=== PATIENT | male | born 1940 | race Hispanic/Latino ===

== ENCOUNTER 2017-07-24 11:41 | Inpatient (IN) | payer MEDICARE ==
[~2017-07-24] VITALS: Ht 165.1 cm; Wt 90.6 kg
[2017-07-24 12:41] LABS: BASOPHILS % (AUTO) 0.8 % (0.0-5.0); EOSINOPHILS % (AUTO) 2.7 % (0.0-8.0); HEMATOCRIT 43.6 % (42-54); LYMPHOCYTES % (AUTO) 17.6 % (21.0-51.0); MEAN CORPUSCULAR HEMOGLOBIN 31.3 pg (27.0-33.0); MEAN CORPUSCULAR HGB CONC 34.4 g/dL (32.0-36.0); MONOCYTES % (AUTO) 10.1 % (3.0-13.0); NEUTROPHILS % (AUTO) 68.8 % (40.0-77.0); PLATELET COUNT (AUTO) 214 K/uL (130-400); RED BLOOD CELL COUNT(AUTO) 4.79 MIL/uL (4.50-6.20); RED CELL DISTRIBUTION WIDTH 15.5 % (11.0-15.5); WHITE BLOOD COUNT (AUTO) 9.9 K/uL (4.8-10.8)
[2017-07-24 13:38] LABS: ALBUMIN 3.7 g/dL (3.5-5.0); BILIRUBIN,DIRECT 0.2 mg/dL (0.0-0.3); TOTAL PROTEIN, SERUM 7.8 g/dL (6.0-8.3)
[2017-07-24 13:42] LABS: APPEARANCE,URINE CLEAR (CLEAR); BILIRUBIN,URINE NEGATIVE (NEGATIVE); COLOR,URINE YELLOW (YELLOW); GLUCOSE, URINE (UA) NEGATIVE (NEGATIVE); KETONES,URINE NEGATIVE (NEGATIVE); LEUKOCYTE ESTERASE ,URINE NEGATIVE (NEGATIVE); NITRATE,URINE NEGATIVE (NEGATIVE); OCCULT BLOOD,URINE NEGATIVE (NEGATIVE); PROTEIN,URINE 100 (NEGATIVE)
[2017-07-24 13:51] LABS: BACTERIA,URINE Few /HPF (None Seen); RBC,URINE 0-1 /HPF (0-1)
[2017-07-24] MEDS ORDERED: MEROPENEM 1 GM VIAL ONE (13:58)
[2017-07-24] MEDS ORDERED: VANCOMYCIN 1GM+NS 250ML 250 ML IV ONE (13:59)
[2017-07-24] MEDS ORDERED: ONDANSETRON HCL MDV 20ML 2 MG/ML VIAL ONE (13:59)
[2017-07-24] MEDS ORDERED: SODIUM CHLORIDE 0.9% 50 ML IV ONE (14:00)
[2017-07-24] MEDS ORDERED: MORPHINE SULFATE 2 MG/ML 1ML SYG ONE (14:00)
[2017-07-24] MEDS: SODIUM CHLORIDE 0.9% 1000ML 1,000 ML IV SCH (14:20)
[2017-07-24] MEDS ORDERED: MAG HYDROX/AL HYDROX/SIMETH ES 30 ML SUSP UDCUP PO PRN (14:30)
[2017-07-24] MEDS ORDERED: ACETAMINOPHEN 325 MG TAB PO PRN ×2 (14:30)
[2017-07-24] MEDS ORDERED: POTASSIUM CHLORIDE 10% ELIXIR 20 MEQ/15 ML UDCUP PO PRN (14:30)
[2017-07-24] MEDS ORDERED: POTASSIUM CHLORIDE 20MEQ/100ML 100 ML IV PRN (14:30)
[2017-07-24] MEDS ORDERED: MORPHINE SULFATE 2 MG/ML 1ML SYG IV PRN (14:30)
[2017-07-24] MEDS ORDERED: ONDANSETRON HCL 4 MG/2 ML VIAL IV PRN (14:30)
[2017-07-24] MEDS ORDERED: LIDOCAINE HCL-MPF 1% 2ML VIAL IVP PRN (14:30)
[2017-07-24] MEDS ORDERED: NITROGLYCERIN 0.4 MG SL TAB SL PRN (14:30)
[2017-07-24] MEDS ORDERED: HYDRALAZINE HCL 20 MG/ML VIAL IV PRN (14:30)
[2017-07-24] MEDS ORDERED: ACETAMINOPHEN-CODEINE 300/30MG TAB PO PRN (14:30)
[2017-07-24] MEDS ORDERED: VANCOMYCIN PROTOCOL PER PHARMACY IV PRN (14:30)
[2017-07-24] MEDS ORDERED: LACTULOSE 20 GM/30 ML UDCUP PO PRN (14:30)
[2017-07-24] MEDS ORDERED: GUAIFENESIN-DM 200/20 MG 10 ML PO PRN (14:30)
[2017-07-24] MEDS ORDERED: VANCOMYCIN 1GM+NS 250ML 250 ML IV SCH (14:30)
[2017-07-24] MEDS: INSULIN HUMULIN R 100 UNIT/ML 3ML SQ SCH ×2 (16:30→21:00)
[2017-07-24 20:28] VITALS: BP 153/87
[2017-07-24 21:02] VITALS: BP 153/87
[2017-07-24] MEDS: FAMOTIDINE 20MG TAB 20 MG TAB PO SCH (22:08)
[2017-07-24] MEDS: LEVOFLOXACIN 500 MG/D5W 100 ML 100 ML IV SCH (22:08)
[2017-07-24] MEDS ORDERED: CEPH500C2 PO (22:30)
[2017-07-24] MEDS ORDERED: METO100T14 PO (22:30)
[2017-07-24] MEDS ORDERED: POTA20TA82 PO (22:30)
[2017-07-24] MEDS ORDERED: GLIP2.5T2 PO (22:30)
[2017-07-24] MEDS ORDERED: TORS20TA4 PO (22:30)
[2017-07-24] MEDS ORDERED: METF850T2 PO (22:30)
[2017-07-24] MEDS ORDERED: ISOS60TA4 PO (22:30)
[2017-07-24] MEDS ORDERED: ATOR40TA69 PO (22:30)
[2017-07-24] MEDS ORDERED: LOSA100T29 PO (22:30)
[2017-07-24] MEDS ORDERED: AMLO5TAB2 PO (22:30)
[2017-07-24] MEDS ORDERED: COMPOUND IV REFRIGERATED 1 EACH IVSOLN MISC PRN (23:30)
[2017-07-25] VITALS (7 sets, daily range): BP systolic 139–160; BP diastolic 67–85
[2017-07-25] MEDS ORDERED: VANCOMYCIN 1.25 GM in SODIUM CHLORIDE 0.9% 250 ML IV SCH (02:00)
[2017-07-25] MEDS: INSULIN HUMULIN R 100 UNIT/ML 3ML SQ SCH ×4 (07:30→21:00)
[2017-07-25] MEDS: TORSEMIDE 20 MG TAB PO SCH (08:21)
[2017-07-25] MEDS: GLIPIZIDE XL 2.5MG TAB PO SCH (08:21)
[2017-07-25] MEDS: METFORMIN HCL 850 MG TABLET PO SCH ×3 (08:22→16:49)
[2017-07-25] MEDS: FAMOTIDINE 20MG TAB 20 MG TAB PO SCH ×2 (08:22→21:54)
[2017-07-25] MEDS: LOSARTAN 100 MG TABLET PO SCH (08:22)
[2017-07-25] MEDS: METOPROLOL TARTRATE 50 MG TAB PO SCH ×2 (08:22→21:54)
[2017-07-25] MEDS: POTASSIUM CHLORIDE 20 MEQ ERTAB PO SCH (08:22)
[2017-07-25] MEDS: ISOSORBIDE MONO 60 MG TAB.SR PO SCH (08:23)
[2017-07-25] MEDS: AMLODIPINE BESYLATE 5 MG TAB PO SCH (08:23)
[2017-07-25] MEDS: VANCOMYCIN 1.25 GM in SODIUM CHLORIDE 0.9% 250 ML IV SCH ×2 (10:09→21:53)
[2017-07-25] MEDS: LEVOFLOXACIN 500 MG/D5W 100 ML 100 ML IV SCH (13:02)
[2017-07-25] MEDS ORDERED: GADOBENATE DIMEGLUMINE 20 ML IV ONE (14:24)
[2017-07-25] MEDS: ACETAMINOPHEN-CODEINE 300/30MG TAB PO PRN (16:51)
[2017-07-25] MEDS: CEFEPIME HCL 1 GM VIAL IVP SCH (21:53)
[2017-07-25] MEDS: ATORVASTATIN CALCIUM 40 MG TABLET PO SCH (21:54)
[2017-07-25] MEDS ORDERED: CEFEPIME 1GM+NS 50ML 50 ML IV SCH (22:00)
[2017-07-26] VITALS (18 sets, daily range): BP systolic 108–176; BP diastolic 55–115
[2017-07-26 04:07] LABS: INR 1.03 (0.85-1.15); PARTIAL THROMBOPLASTIN TIME 30.7 SEC (26.3-35.5); PROTHROMBIN TIME 10.8 SEC (9.6-11.6)
[2017-07-26] MEDS: CEFEPIME HCL 1 GM VIAL IVP SCH ×3 (04:58→21:50)
[2017-07-26] MEDS: METOPROLOL TARTRATE 50 MG TAB PO SCH ×2 (04:58→10:06)
[2017-07-26] MEDS: INSULIN HUMULIN R 100 UNIT/ML 3ML SQ SCH ×4 (05:14→21:00)
[2017-07-26] MEDS ORDERED: SODIUM CHLORIDE 0.9% 1000ML 1,000 ML IV ONE (06:12)
[2017-07-26] MEDS ORDERED: FENTANYL CITRATE PF 50 MCG/1 ML 2ML VIAL ONE (06:37)
[2017-07-26] MEDS ORDERED: BUPIVACAINE/PF 0.5% 30ML VIAL ONE (06:37)
[2017-07-26] MEDS ORDERED: MIDAZOLAM HCL 1 MG/ML 2ML VIAL ONE (06:37)
[2017-07-26] MEDS ORDERED: LIDOCAINE HCL 1% 20 ML VIAL ONE (06:37)
[2017-07-26] MEDS: SODIUM CHLORIDE 0.9% 1000ML 1,000 ML IV SCH (07:10)
[2017-07-26] MEDS: METFORMIN HCL 850 MG TABLET PO SCH ×3 (08:30→17:18)
[2017-07-26] MEDS ORDERED: FUROSEMIDE 10 MG/ML 4ML VIAL IV SCH (09:45)
[2017-07-26] MEDS ORDERED: ALBU2.5V2 IH (09:58)
[2017-07-26] MEDS: VANCOMYCIN 1.25 GM in SODIUM CHLORIDE 0.9% 250 ML IV SCH ×2 (10:05→20:41)
[2017-07-26] MEDS: LOSARTAN 100 MG TABLET PO SCH (10:05)
[2017-07-26] MEDS: TORSEMIDE 20 MG TAB PO SCH (10:06)
[2017-07-26] MEDS: AMLODIPINE BESYLATE 5 MG TAB PO SCH (10:06)
[2017-07-26] MEDS: POTASSIUM CHLORIDE 20 MEQ ERTAB PO SCH (10:06)
[2017-07-26] MEDS: FAMOTIDINE 20MG TAB 20 MG TAB PO SCH ×2 (10:06→20:41)
[2017-07-26] MEDS: ISOSORBIDE MONO 60 MG TAB.SR PO SCH (10:06)
[2017-07-26] MEDS: ALBUTEROL SULFATE 0.083% 2.5 MG/3 ML INH IH SCH ×4 (10:27→22:20)
[2017-07-26] MEDS: ACETAMINOPHEN-CODEINE 300/30MG TAB PO PRN (12:20)
[2017-07-26] MEDS: GLIPIZIDE XL 2.5MG TAB PO SCH (12:21)
[2017-07-26] MEDS: ATORVASTATIN CALCIUM 40 MG TABLET PO SCH (20:41)
[2017-07-26] MEDS ORDERED: COMPOUND IV REFRIGERATED 1 EACH IVSOLN MISC PRN (21:00)
[2017-07-26] MEDS: MORPHINE SULFATE 4 MG/1ML SYG IV PRN (21:44)
[2017-07-26] MEDS: VANCOMYCIN 750MG + D5W 250 ML IV SCH ×2 (21:47)
[2017-07-26] MEDS ORDERED: IOPAMIDOL-370 100 ML VIAL IV ONE (22:50)
[2017-07-27] MEDS: ALBUTEROL SULFATE 0.083% 2.5 MG/3 ML INH IH SCH ×6 (02:38→22:04)
[2017-07-27 03:40] LABS: HEMATOCRIT 42.8 % (42-54); MEAN CORPUSCULAR HEMOGLOBIN 31.3 pg (27.0-33.0); MEAN CORPUSCULAR HGB CONC 34.5 g/dL (32.0-36.0); MEAN CORPUSCULAR VOLUME 90.8 fL (79-99); PLATELET COUNT (AUTO) 234 K/uL (130-400); RED BLOOD CELL COUNT(AUTO) 4.71 MIL/uL (4.50-6.20); RED CELL DISTRIBUTION WIDTH 15.1 % (11.0-15.5); WHITE BLOOD COUNT (AUTO) 9.7 K/uL (4.8-10.8)
[2017-07-27 03:50] LABS: CREATININE 1.4 mg/dL (0.5-1.5); POTASSIUM 3.3 mmol/L (3.5-5.1)
[2017-07-27 03:54] VITALS: BP 150/70
[2017-07-27] MEDS: POTASSIUM CHLORIDE 20 MEQ ERTAB PO PRN ×3 (04:00→18:20)
[2017-07-27 04:02] LABS: B-TYPE NATRIURETIC PEPTIDE 351 pg/mL (0-100)
[2017-07-27] MEDS: CEFEPIME HCL 1 GM VIAL IVP SCH ×3 (05:28→21:31)
[2017-07-27] MEDS: VANCOMYCIN 750MG + D5W 250 ML IV SCH ×6 (05:56→21:32)
[2017-07-27] MEDS: INSULIN HUMULIN R 100 UNIT/ML 3ML SQ SCH ×4 (06:48→20:20)
[2017-07-27 07:00] VITALS: BP_SYST 138; BP_SYST 143; BP_SYST 154; BP_SYST 164; BP_DIAS 65; BP_DIAS 68; BP_DIAS 71; BP_DIAS 88
[2017-07-27] MEDS: AMLODIPINE BESYLATE 5 MG TAB PO SCH (09:28)
[2017-07-27] MEDS: FAMOTIDINE 20MG TAB 20 MG TAB PO SCH ×2 (09:28→20:17)
[2017-07-27] MEDS: ISOSORBIDE MONO 60 MG TAB.SR PO SCH (09:28)
[2017-07-27] MEDS: LOSARTAN 100 MG TABLET PO SCH (09:28)
[2017-07-27] MEDS: METOPROLOL TARTRATE 50 MG TAB PO SCH ×2 (09:28→20:17)
[2017-07-27] MEDS: METFORMIN HCL 850 MG TABLET PO SCH ×3 (09:28→18:19)
[2017-07-27] MEDS: TORSEMIDE 20 MG TAB PO SCH (09:28)
[2017-07-27] MEDS: GLIPIZIDE XL 2.5MG TAB PO SCH (09:28)
[2017-07-27] MEDS: POTASSIUM CHLORIDE 20 MEQ ERTAB PO SCH (09:29)
[2017-07-27] MEDS ORDERED: FUROSEMIDE 10 MG/ML 4ML VIAL IV SCH (09:30)
[2017-07-27 11:00] VITALS: BP 118/63
[2017-07-27] MEDS: DIPH,PERTUSS(ACELL),TET VAC/PF 0.5 ML VIAL IM SCH (12:39)
[2017-07-27 16:00] VITALS: BP 135/67
[2017-07-27 20:00] VITALS: BP 124/64
[2017-07-27] MEDS: ATORVASTATIN CALCIUM 40 MG TABLET PO SCH (20:17)
[2017-07-28] VITALS (7 sets, daily range): BP systolic 101–164; BP diastolic 58–94
[2017-07-28] MEDS: ALBUTEROL SULFATE 0.083% 2.5 MG/3 ML INH IH SCH ×6 (02:06→21:37)
[2017-07-28 05:14] LABS: HEMATOCRIT 40.5 % (42-54); MEAN CORPUSCULAR HEMOGLOBIN 31.5 pg (27.0-33.0); MEAN CORPUSCULAR HGB CONC 34.8 g/dL (32.0-36.0); MEAN CORPUSCULAR VOLUME 90.7 fL (79-99); PLATELET COUNT (AUTO) 217 K/uL (130-400); RED BLOOD CELL COUNT(AUTO) 4.46 MIL/uL (4.50-6.20); RED CELL DISTRIBUTION WIDTH 15.6 % (11.0-15.5)
[2017-07-28 05:24] LABS: CREATININE 1.2 mg/dL (0.5-1.5); POTASSIUM 3.7 mmol/L (3.5-5.1)
[2017-07-28 05:27] LABS: B-TYPE NATRIURETIC PEPTIDE 121 pg/mL (0-100)
[2017-07-28] MEDS: CEFEPIME HCL 1 GM VIAL IVP SCH ×3 (05:30→21:41)
[2017-07-28] MEDS: VANCOMYCIN 750MG + D5W 250 ML IV SCH ×2 (05:39)
[2017-07-28] MEDS: INSULIN HUMULIN R 100 UNIT/ML 3ML SQ SCH ×4 (06:27→20:51)
[2017-07-28] MEDS: ISOSORBIDE MONO 60 MG TAB.SR PO SCH (10:05)
[2017-07-28] MEDS: METOPROLOL TARTRATE 50 MG TAB PO SCH ×2 (10:05→20:42)
[2017-07-28] MEDS: TORSEMIDE 20 MG TAB PO SCH (10:05)
[2017-07-28] MEDS: AMLODIPINE BESYLATE 5 MG TAB PO SCH (10:05)
[2017-07-28] MEDS: FAMOTIDINE 20MG TAB 20 MG TAB PO SCH ×2 (10:05→20:42)
[2017-07-28] MEDS: LOSARTAN 100 MG TABLET PO SCH (10:05)
[2017-07-28] MEDS: POTASSIUM CHLORIDE 20 MEQ ERTAB PO SCH (10:05)
[2017-07-28] MEDS: METFORMIN HCL 850 MG TABLET PO SCH ×3 (10:07→18:02)
[2017-07-28] MEDS: GLIPIZIDE XL 2.5MG TAB PO SCH (10:07)
[2017-07-28] MEDS: DIPH,PERTUSS(ACELL),TET VAC/PF 0.5 ML VIAL IM SCH (11:45)
[2017-07-28] MEDS: ATORVASTATIN CALCIUM 40 MG TABLET PO SCH (20:42)
[2017-07-28] MEDS: DEXTROSE IV SCH (20:42)
[2017-07-28] MEDS: VANCOMYCIN 1.25 GM IV SCH (20:42)
[2017-07-29] VITALS: BP 140/68
[2017-07-29] MEDS: ALBUTEROL SULFATE 0.083% 2.5 MG/3 ML INH IH SCH ×5 (01:25→18:24)
[2017-07-29 04:00] VITALS: BP 136/72
[2017-07-29] MEDS: CEFEPIME HCL 1 GM VIAL IVP SCH ×3 (05:25→21:33)
[2017-07-29] MEDS: ACETAMINOPHEN-CODEINE 300/30MG TAB PO PRN (06:07)
[2017-07-29] MEDS: INSULIN HUMULIN R 100 UNIT/ML 3ML SQ SCH ×4 (06:09→21:00)
[2017-07-29 06:23] LABS: CREATININE 1.2 mg/dL (0.5-1.5); POTASSIUM 4.1 mmol/L (3.5-5.1)
[2017-07-29 08:00] VITALS: BP 127/55
[2017-07-29] MEDS ORDERED: ASPIRIN 81MG TAB.CHEW PO SCH (09:00)
[2017-07-29] MEDS: LOSARTAN 100 MG TABLET PO SCH (09:16)
[2017-07-29] MEDS: GLIPIZIDE XL 2.5MG TAB PO SCH (09:16)
[2017-07-29] MEDS: ISOSORBIDE MONO 60 MG TAB.SR PO SCH (09:17)
[2017-07-29] MEDS: METOPROLOL TARTRATE 50 MG TAB PO SCH ×2 (09:17→21:34)
[2017-07-29] MEDS: METFORMIN HCL 850 MG TABLET PO SCH ×3 (09:17→17:48)
[2017-07-29] MEDS: POTASSIUM CHLORIDE 20 MEQ ERTAB PO SCH (09:17)
[2017-07-29] MEDS: FAMOTIDINE 20MG TAB 20 MG TAB PO SCH ×2 (09:17→21:34)
[2017-07-29] MEDS: AMLODIPINE BESYLATE 5 MG TAB PO SCH (09:17)
[2017-07-29] MEDS: TORSEMIDE 20 MG TAB PO SCH (09:18)
[2017-07-29] MEDS: DIPH,PERTUSS(ACELL),TET VAC/PF 0.5 ML VIAL IM SCH (11:45)
[2017-07-29 12:00] VITALS: BP 134/68
[2017-07-29] MEDS: DEXTROSE IV SCH (14:50)
[2017-07-29] MEDS: VANCOMYCIN 1.25 GM IV SCH (14:50)
[2017-07-29 16:00] VITALS: BP 125/70
[2017-07-29 19:44] VITALS: BP 143/75
[2017-07-29] MEDS: MORPHINE SULFATE 4 MG/1ML SYG IV PRN (20:04)
[2017-07-29] MEDS: ATORVASTATIN CALCIUM 40 MG TABLET PO SCH (21:34)
== END 2017-07-29 21:54 | DRG 901 ==
LOC: EDH 11:41 → OBSVTOIN 13:49 → EDHIP 13:49 → 3AH 20:41 → 3BH 07-26 14:39
PROVIDERS: ADMIT Internal Medicine; ATTEND Internal Medicine
PROC: 0JBR0ZZ Excision of Left Foot Subcutaneous Tissue and Fascia, Open Approach (ICD-10-PCS; principal; 2017-07-26 06:30)
PROC: 0KCW0ZZ Extirpation of Matter from Left Foot Muscle, Open Approach (ICD-10-PCS; 2017-07-26 06:30)
DX: S91.342A Puncture wound with foreign body, left foot, initial encounter (principal); I50.43 Acute on chronic combined systolic (congestive) and diastolic (congestive) heart failure; E11.22 Type 2 diabetes mellitus with diabetic chronic kidney disease; E11.42 Type 2 diabetes mellitus with diabetic polyneuropathy; I13.0 Hypertensive heart and chronic kidney disease with heart failure and stage 1 through stage 4 chronic kidney disease, or unspecified chronic kidney disease; L02.612 Cutaneous abscess of left foot; L03.116 Cellulitis of left lower limb; M86.8X7 Other osteomyelitis, ankle and foot; N18.2 Chronic kidney disease, stage 2 (mild); I25.10 Atherosclerotic heart disease of native coronary artery without angina pectoris; N40.0 Benign prostatic hyperplasia without lower urinary tract symptoms; E11.51 Type 2 diabetes mellitus with diabetic peripheral angiopathy without gangrene; E11.621 Type 2 diabetes mellitus with foot ulcer; E11.69 Type 2 diabetes mellitus with other specified complication; E66.9 Obesity, unspecified; L97.529 Non-pressure chronic ulcer of other part of left foot with unspecified severity; M19.90 Unspecified osteoarthritis, unspecified site; E78.5 Hyperlipidemia, unspecified; Z95.810 Presence of automatic (implantable) cardiac defibrillator; W22.8XXA Striking against or struck by other objects, initial encounter; Z87.891 Personal history of nicotine dependence; Z86.718 Personal history of other venous thrombosis and embolism; Y93.89 Activity, other specified; Y92.89 Other specified places as the place of occurrence of the external cause; Y99.8 Other external cause status; Z87.01 Personal history of pneumonia (recurrent); Z86.73 Personal history of transient ischemic attack (TIA), and cerebral infarction without residual deficits
CPT/HCPCS: 36415; 71045; 71275; 73630; 73720; 80048; 80076; 80202; 81001; 82948; 83605; 83690; 83880; 85025; 85027; 85610; 85730; 87040; 87070; 87076; 87077; 87186; 87205; 88300; 90715; 93306; 93925; 94640; 94664; 97039; A4218; A6266; A9577; J0360; J0692; J1815; J1940; J1956; J2185; J2250; J2270; J3010; J3370; J3490; J7030; J7060; L3260; Q9967